=== PATIENT | male | born 1940 | race Caucasian/White ===

== ENCOUNTER → 2024-03-02 08:15 | Outpatient (REF) | payer MEDICARE, OTHER, SELFPAY | LOC: PAVMRI 08:15 | PROVIDERS: ATTENDING PHYSICIAN Psychiatry & Neurology Neurology; FAMILY PHYSICIAN Family Medicine | DX: R53.1 Weakness (principal) | CPT/HCPCS: 70553; A9575 ==

== ENCOUNTER → 2024-03-22 11:07 | Outpatient (REF) | payer MEDICARE, OTHER, SELFPAY ==
[2024-03-22 13:59] LABS: Glycohemoglobin (HgbA1c) 6.3 % (4.0-5.6)
== END ==
LOC: OLABWIL 11:07
PROVIDERS: ATTENDING PHYSICIAN Student in an Organized Health Care Education/Training Program
DX: R73.03 Prediabetes (principal)
CPT/HCPCS: 36415; 83036

== ENCOUNTER → 2024-09-06 11:07 | Outpatient (REF) | payer MEDICARE, OTHER, SELFPAY ==
[2024-09-06 15:45] LABS: % Basophils 0.8 % (0-2); % Eosinophils 3.4 % (0-6); % Immature Granulocytes 0.3 % (0-0.5); % Lymphocytes 38.4 % (20.5-51.1); % Monocytes 9.3 % (1.7-9.3); % Neutrophils 47.8 % (42.2-75.2); Absolute Basophils 0.1 10^3/uL (0-0.2); Absolute Eosinophils 0.3 10^3/uL (0-0.7); Absolute Lymphocytes 2.8 10^3/uL (1.2-3.4); Absolute Monocytes 0.7 10^3/uL (0.1-0.6); Absolute Neutrophils 3.5 10^3/uL (1.4-6.5); Hematocrit 40.9 % (39.0-52.0); Hemoglobin 13.5 g/dL (13.0-18.0); Mean Corpuscular Hgb 33.1 pg (27.0-31.0); Mean Corpuscular Volume 100.2 fL (80.0-94.0); Mean Platelet Volume 10.9 fL (7.4-10.4); Nucleated Red Blood Cells % 0.8 % (-); Platelet Count 225 10^3/uL (130-400); Red Blood Cell Count 4.08 10^6/uL (4.70-6.10); Red Cell Dist. Width 12.1 % (11.5-14.5); White Blood Cell Count 7.3 10^3/uL (4.8-10.8)
[2024-09-06 15:51] LABS: ALT (SGPT) 22 U/L (0-50); AST (SGOT) 28 U/L (17-59); Alkaline Phosphatase 68 U/L (38-126); Blood Urea Nitrogen 14 mg/dl (9-20); Calcium 8.8 mg/dl (8.4-10.2); Carbon Dioxide 27 mmol/L (22-30); Chloride 99 mmol/L (98-107); Glucose 105 mg/dl (70-99); HDL Cholesterol 38 mg/dl; LDL Cholesterol, Calculated 54 mg/dl; Potassium 4.4 mmol/L (3.5-5.1); Sodium 133 mmol/L (135-145); Total Bilirubin 0.5 mg/dl (0.2-1.3); Total Cholesterol 117 mg/dl (50-199); Total Protein 6.2 g/dl (6.3-8.2); Triglyceride 129 mg/dl (10-149); Urine Albumin Negative (Neg - Trace); Urine Bilirubin Negative (Negative); Urine Character Clear (Clear); Urine Color Yellow; Urine Glucose Negative (Negative); Urine Ketone Negative (Negative); Urine Leukocyte Negative (Negative); Urine Nitrite Negative (Negative); Urine Occult Blood Negative (Negative); Urine Urobilinogen Negative (Neg - 1+); Urine pH 6.5 (5.0-9.0); Very Low Density Lipoprotein 25 mg/dl (0-30); eGFR > 60.00
[2024-09-07 08:14] LABS: Glycohemoglobin (HgbA1c) 6.4 % (4.0-5.6)
== END ==
LOC: OLABWIL 11:07
PROVIDERS: ATTENDING PHYSICIAN Family Medicine
DX: I25.10 Atherosclerotic heart disease of native coronary artery without angina pectoris (principal); E78.5 Hyperlipidemia, unspecified; R73.03 Prediabetes; Z00.00 Encounter for general adult medical examination without abnormal findings
CPT/HCPCS: 36415; 80053; 80061; 81003; 83036; 84443; 85025

== ENCOUNTER → 2025-01-12 11:56 | Outpatient (REF) | payer MEDICARE, OTHER, SELFPAY ==
[2025-01-12 13:05] LABS: % Basophils 0.7 % (0-2); % Eosinophils 2.3 % (0-6); % Immature Granulocytes 0.2 % (0-0.5); % Lymphocytes 43.7 % (20.5-51.1); % Monocytes 9.2 % (1.7-9.3); % Neutrophils 43.9 % (42.2-75.2); Absolute Eosinophils 0.1 10^3/uL (0-0.7); Absolute Lymphocytes 2.6 10^3/uL (1.2-3.4); Absolute Monocytes 0.6 10^3/uL (0.1-0.6); Absolute Neutrophils 2.6 10^3/uL (1.4-6.5); Hematocrit 40.6 % (39.0-52.0); Hemoglobin 13.7 g/dL (13.0-18.0); Mean Corp Hgb Conc. 33.7 g/dL (33.0-37.0); Mean Corpuscular Hgb 32.2 pg (27.0-31.0); Mean Corpuscular Volume 95.3 fL (80.0-94.0); Mean Platelet Volume 10.5 fL (7.4-10.4); Nucleated Red Blood Cells % 0 % (-); Platelet Count 203 10^3/uL (130-400); Red Blood Cell Count 4.26 10^6/uL (4.70-6.10); Red Cell Dist. Width 12.5 % (11.5-14.5)
[2025-01-12 13:17] LABS: ALT (SGPT) < 10 U/L (0-50); AST (SGOT) 23 U/L (17-59); Alkaline Phosphatase 49 U/L (38-126); Blood Urea Nitrogen 14 mg/dl (9-20); Calcium 8.9 mg/dl (8.4-10.2); Carbon Dioxide 28 mmol/L (22-30); Chloride 101 mmol/L (98-107); Glucose 123 mg/dl (70-99); HDL Cholesterol 41 mg/dl; LDL Cholesterol, Calculated 63 mg/dl; Potassium 4.6 mmol/L (3.5-5.1); Sodium 137 mmol/L (135-145); Total Bilirubin 0.7 mg/dl (0.2-1.3); Total Cholesterol 121 mg/dl (50-199); Total Protein 6.2 g/dl (6.3-8.2); Triglyceride 87 mg/dl (10-149); Very Low Density Lipoprotein 17 mg/dl (0-30); eGFR > 60.00
[2025-01-12 13:42] LABS: Glycohemoglobin (HgbA1c) 6.3 % (4.0-5.6)
== END ==
LOC: OLABWIL 11:56
PROVIDERS: ATTENDING PHYSICIAN Family Medicine
DX: R73.03 Prediabetes (principal); I10 Essential (primary) hypertension; I48.0 Paroxysmal atrial fibrillation
CPT/HCPCS: 36415; 80053; 80061; 83036; 85025

== ENCOUNTER → 2025-03-02 09:53 | Outpatient (REF) | payer MEDICARE, OTHER, SELFPAY ==
[2025-03-02 10:59] LABS: % Basophils 0.6 % (0-2); % Eosinophils 2.4 % (0-6); % Immature Granulocytes 0.3 % (0-0.5); % Lymphocytes 37.9 % (20.5-51.1); % Monocytes 8.5 % (1.7-9.3); % Neutrophils 50.3 % (42.2-75.2); Absolute Eosinophils 0.2 10^3/uL (0-0.7); Absolute Lymphocytes 2.5 10^3/uL (1.2-3.4); Absolute Monocytes 0.6 10^3/uL (0.1-0.6); Absolute Neutrophils 3.4 10^3/uL (1.4-6.5); Hematocrit 40.3 % (39.0-52.0); Hemoglobin 13.9 g/dL (13.0-18.0); Mean Corp Hgb Conc. 34.5 g/dL (33.0-37.0); Mean Corpuscular Hgb 32.6 pg (27.0-31.0); Mean Corpuscular Volume 94.4 fL (80.0-94.0); Mean Platelet Volume 10.4 fL (7.4-10.4); Nucleated Red Blood Cells % 0 % (-); Platelet Count 188 10^3/uL (130-400); Red Blood Cell Count 4.27 10^6/uL (4.70-6.10); Red Cell Dist. Width 12.4 % (11.5-14.5); White Blood Cell Count 6.7 10^3/uL (4.8-10.8)
[2025-03-02 11:39] LABS: Blood Urea Nitrogen 14 mg/dl (9-20); Calcium 9.2 mg/dl (8.4-10.2); Carbon Dioxide 25 mmol/L (22-30); Chloride 106 mmol/L (98-107); Glucose 118 mg/dl (70-99); Potassium 4.4 mmol/L (3.5-5.1); Sodium 138 mmol/L (135-145); eGFR > 60.00
== END ==
LOC: REG 09:53
PROVIDERS: ATTENDING PHYSICIAN Orthopaedic Surgery
DX: Z01.818 Encounter for other preprocedural examination (principal)
CPT/HCPCS: 36415; 80048; 85025; 93005

== ENCOUNTER 2025-03-17 07:33 | Emergency (ER) | payer MEDICARE, OTHER, SELFPAY ==
[2025-03-17 07:34] VITALS: BMI 30.3
[2025-03-17 07:35] VITALS: BP 137/81
[2025-03-17 07:37] VITALS: BP 137/81
--- NOTE | 2025-03-17 07:37 | ED.GENMED ---
History of Present Illness
General
Chief Complaint: Cardiac Symptoms
Source: patient
Time Seen by Provider: 03/17/25 07:37
History of Present Illness
History of Present Illness:
84-year-old male with past medical history of atrial fibrillation, hyperlipidemia, pjr-iaxfpkd-uuxgqrkab diabetes, Parkinson's disease presenting to the emergency department from outpatient surgical center where he was supposed to have tendon
release surgery with Dr. Foy from [facility], found to be in rapid atrial fibrillation with a heart rate around 150 bpm, EMS contacted and at time of their arrival, patient had already converted back into a normal sinus rhythm.
Patient was asymptomatic at the time, EMS states patient told them that he was having off-and-on chest discomfort a few days ago but states this is normal for him and he did not think anything about it. Follows with pressure dispatcher, Dr. Sales.
Reports good compliance with his anticoagulant medication. No other concerns presently and at this time patient states he feels as if he is in his usual state of health.
Past History
Past History
ED Past Medical History: CAD, Hypercholesterolemia and Other (Parkinsons)
ED Past Surgical History: Cardiac (cardiac stent 2014) and Orthopedic
Social History
Tobacco: Former smoker
Alcohol: None
Drug: None
Personal:
Living: with family
Family History
Family History: CAD; Negative Early CAD
Review of Systems
Review of Systems
All Other Systems: ROS reviewed and negative except as documented in HPI and ROS
Phy Exam
Physical Exam
Physical Exam:
GENERAL: Alert , in no apparent distress
EYE: conjunctiva clear
NECK: Supple
ENT: o/p clr, mmm.
CARDIAC: Regular rate and rhythm
LUNGS: Clear breath sounds bilaterally, no acute respiratory distress, no wheezes/rales/rhonchi
NEUROLOGICAL: Alert and oriented
SKIN: Warm and dry, skin intact.
MUSCULOSKELETAL: well perfused.
PSYCH: Normal and appropriate interaction.
Scores
[id number] Score for Afib Stroke Risk
Age in Years (65=0, 65-74=1, >/=75=2): > or = 75
Sex (Female=+1): Male
Congestive Heart Failure History (Yes=+1): No
Hypertension History (Yes=+1): Yes
Stroke/TIA/Thromboembolism History (Yes=+2): No
Vascular Disease History (Yes=+1): No
Diabetes Mellitus (Yes=+1): Yes
Score: 4
Anticoagulation Recommendations: Recommend anticoagulation (as validated in nonvalvular fib)
Heart Failure Risk
Heart Failure Risk Score: Not Applicable
Heart Score for Chest Pain Patients
STEMI patient?: Not applicable
Withdrawal Assessment of Alcohol
Withdrawal Assessment Completed?: Not applicable
Course
Orders/Labs/Results
Orders:
Orders
03/17/25 07:36
Electrocardiogram (*1) Urgent
Reason for Study: Atrial Fibrillation
EKG- Treatment ONCE
03/17/25 07:42
Basic Metabolic Panel Urgent
Complete Blood Count/With Diff Urgent
Magnesium Urgent
TSH Urgent
Troponin I Urgent
Abnormal Lab Results
03/17/25
07:42
RBC 4.34 L 10^6/uL
(4.70-6.10)
MCH 32.7 H pg
(27.0-31.0)
Glucose 135 H mg/dl
(70-99)
03/17/25 07:42
03/17/25 07:42
Vital Signs
Initial and Last Documented VS:
Initial Vital Signs
BP
137/81
03/17/25 07:35
Last Documented Vital Signs
Temp Pulse Resp BP Pulse Ox
97.6 F 66 17 133/84 94
03/17/25 07:55 03/17/25 08:45 03/17/25 08:45 03/17/25 08:00 03/17/25 08:30
MDM/Problems Addressed
Differential Diagnosis Includes:
Paroxysmal atrial fibrillation
Electrolyte imbalance
Medication side effect
Thyroid disorder
ACS
MDM/Problems Addressed:
84-year-old male presenting to the ER from outpatient surgical center where he was found to be in a rapid A-fib, asymptomatic at the time. EMS notes patient spontaneously converted back to normal sinus rhythm by the time they had gotten to the
patient. Patient remains in a normal sinus rhythm here in the ER and otherwise asymptomatic. Will check labs including a troponin given patient's reported chest discomfort a few days ago. Will keep patient on telemetry, as long as labs are
unremarkable and patient remains within a normal sinus rhythm anticipate discharge home and can follow-up with cardiology as an outpatient.
Chronic conditions affecting care: Arrhythmia
Acute Exacerbation and/or Progression of Chronic Illness: Arrhythmia
*Pulse Oximetry
SaO2: 98
Oxygen Mode of Delivery: Room air
Patient hypoxic: no
*EKG
Interpreted by ED Provider?: Yes
Interpretation: normal
Heart Rate: 73
Rate: normal
Rhythm: sinus and PAC's
[place]: left axis deviation
Ischemia: no ischemia
*[employer] Developer Interpretation
Rate: normal
Heart Rate: 81
Rhythm: sinus
*Critical Care Note
Total Time (30-74mins, 75-104mins- exclusive of procedures): Not Applicable
Patient Management
Discussion with other providers: Customer Contact Representative
Escalation/DeEscalation of care consider admission/obs:
Patient remains hemodynamically stable and in a rate controlled normal sinus rhythm. Prior to discharge cardiology office had reached out to me stating that they were alerted patient went into an A-fib episode, notified that patient converted on
his own. They will follow-up with the patient on March 24 at 9:20 AM: Patient was notified about this appointment time and will follow-up then. Patient and are aware of return precautions to the ER
ED Attending Note
-
Portions of this chart may have been created with voice recognition software.� Occasional wrong word or��sound alike� substitutions may have occurred due to the inherent limitations of voice recognition software.
Discharge Plan
Departure
Patient Disposition: Home (Routine Discharge)
Patient with high blood pressure during this ER visit?: Yes
Discharge Problem:
Paroxysmal atrial fibrillation
Instructions: Atrial fibrillation - Discharge instructions
Prescriptions:
No Action
aspirin [Iban Chewable Aspirin] 81 MG tablet,chewable
81 mg PO HS
dhwzkiamweu-ijngwgqpj-rjz C-Mn 1 TAB tablet
1 tab PO DAILY
docosahexaenoic acid-epa 1 CAP capsule
1 cap PO DAILY
multivitamin [TAB A NAVEEN] Tablet
1 tab PO DAILY
fexofenadine [Marla] 180 mg Tablet
180 mg PO DAILY
sildenafil 100 mg tablet
100 mg PO DAILY PRN (Reason: intercourse)
carbidopa-levodopa 25-100 mg tablet
2 tab PO TID
rosuvastatin 20 mg tablet
20 mg PO DAILY
coenzyme Q10 [Co Q-10] 200 mg Capsule
200 mg PO DAILY
Eliquis 5 mg tablet
5 mg PO BID Qty: 30 0RF
Referrals:
Alec Lozano DO [Family Provider, Family Practice]
Hardik Sales MD [Active, Cardiology]
Referral Note: Call office for appointment
Valerie Cerna CRNP [Specified Professional Personl, Cardiology] - 03/24/25 9:20 am
Referral Note: You have a follow-up appointment with Dr. Slaes's nurse practitioner at the [facility].
Interventions
Interventions:
*Risk Screen - Suicide Last Done: 03/17/25 07:39
*General Assessment Last Done: 03/17/25 07:39
*Neglect/Abuse Screening Last Done: 03/17/25 07:39
*ED- Fall Risk Assessment Last Done: 03/17/25 07:41
*ED COVID-19 Vaccine History Last Done: 03/17/25 08:09
*Nursing Disposition Last Done: 03/17/25 09:13
ED- Pulmonary Assessment Last Done: 03/17/25 07:55
ED- Cardiac Assessment Last Done: 03/17/25 07:55
Discharge Date and Time
Discharge Date/Time: 03/17/25 09:13
Print Language: ALBANIAN
[2025-03-17 07:50] LABS: Hematocrit 40.3 % (39.0-52.0); Hemoglobin 14.2 g/dL (13.0-18.0); Mean Corp Hgb Conc. 35.2 g/dL (33.0-37.0); Mean Corpuscular Volume 92.9 fL (80.0-94.0); Nucleated Red Blood Cells % 0 % (-); Platelet Count 183 10^3/uL (130-400); Red Cell Dist. Width 12.5 % (11.5-14.5)
[2025-03-17 08:00] VITALS: BP 133/84
[2025-03-17 08:05] LABS: Blood Urea Nitrogen 16 mg/dl (9-20); Calcium 8.9 mg/dl (8.4-10.2); Carbon Dioxide 26 mmol/L (22-30); Chloride 107 mmol/L (98-107); Estimated Creatinine Clearance 82 ml/min; Glucose 135 mg/dl (70-99); Magnesium 1.9 mg/dl (1.6-2.3); Potassium 4.4 mmol/L (3.5-5.1); Sodium 135 mmol/L (135-145); eGFR > 60.00
[2025-03-17 08:18] LABS: Troponin I < 0.012 ng/ml
[2025-03-17 08:36] LABS: TSH 1.16 uIU/ml (0.47-4.68)
== END 2025-03-17 09:13 | disposition home or self-care (01) ==
LOC: EMR 07:33
PROVIDERS: Physician Assistant Medical; EMERGENCY PHYSICIAN Emergency Medicine; FAMILY PHYSICIAN Family Medicine; OTHER PHYSICIAN Internal Medicine Cardiovascular Disease
DX: R07.89 Other chest pain (principal); I48.0 Paroxysmal atrial fibrillation; R03.0 Elevated blood-pressure reading, without diagnosis of hypertension; E11.9 Type 2 diabetes mellitus without complications; E78.00 Pure hypercholesterolemia, unspecified; G20.A1 Parkinson's disease without dyskinesia, without mention of fluctuations; I25.10 Atherosclerotic heart disease of native coronary artery without angina pectoris; Z79.01 Long term (current) use of anticoagulants; Z95.5 Presence of coronary angioplasty implant and graft; Z87.891 Personal history of nicotine dependence
CPT/HCPCS: 99283; 80048; 83735; 84443; 84484; 85025; 93005

== ENCOUNTER → 2025-05-19 09:10 | Outpatient (REF) | payer MEDICARE, OTHER, SELFPAY ==
[2025-05-19 11:38] LABS: Hematocrit 40.3 % (39.0-52.0); Hemoglobin 13.8 g/dL (13.0-18.0); Mean Corp Hgb Conc. 34.2 g/dL (33.0-37.0); Mean Corpuscular Volume 97.6 fL (80.0-94.0); Platelet Count 189 10^3/uL (130-400); Red Cell Dist. Width 12.4 % (11.5-14.5)
[2025-05-19 12:07] LABS: Blood Urea Nitrogen 13 mg/dl (9-20); Calcium 9.0 mg/dl (8.4-10.2); Carbon Dioxide 29 mmol/L (22-30); Chloride 101 mmol/L (98-107); Glucose 113 mg/dl (70-99); Potassium 4.8 mmol/L (3.5-5.1); Sodium 135 mmol/L (135-145); eGFR > 60.00
== END ==
LOC: SDSPAT 09:10
PROVIDERS: ATTENDING PHYSICIAN Orthopaedic Surgery; FAMILY PHYSICIAN Family Medicine
DX: Z01.818 Encounter for other preprocedural examination (principal)
CPT/HCPCS: 36415; 80048; 85027; 93005

== ENCOUNTER 2025-05-23 06:23 | Day surgery (SDC) | payer MEDICARE, OTHER, SELFPAY ==
[2025-05-19 14:09] VITALS: BMI 29.1
[2025-05-23] VITALS (12 sets, daily range): BP systolic 115–171; BP diastolic 83–107; BMI 29.1
[2025-05-23] MEDS: TYLENOL 1000 MG PO (11:15)
[2025-05-23] MEDS: CELEBREX 200 MG PO (11:15)
[2025-05-23] MEDS: NORMOSOL-R/PLASMALYTE-A 1000 IV (11:42)
[2025-05-23] MEDS: LOPRESSOR 3 MG IV (13:36)
== END 2025-05-23 15:10 | disposition home or self-care (01) ==
LOC: SDS 06:23
PROVIDERS: ATTENDING PHYSICIAN Orthopaedic Surgery; FAMILY PHYSICIAN Family Medicine
DX: M66.242 Spontaneous rupture of extensor tendons, left hand (principal)
CPT/HCPCS: 26437

== ENCOUNTER → 2025-07-25 09:55 | Outpatient (REF) | payer MEDICARE, OTHER, SELFPAY ==
[2025-07-25 10:30] LABS: Hematocrit 42.1 % (39.0-52.0); Hemoglobin 13.9 g/dL (13.0-18.0); Mean Corp Hgb Conc. 33.0 g/dL (33.0-37.0); Mean Corpuscular Volume 101.0 fL (80.0-94.0); Nucleated Red Blood Cells % 0 % (-); Platelet Count 176 10^3/uL (130-400); Red Cell Dist. Width 12.4 % (11.5-14.5)
[2025-07-25 10:59] LABS: ALT (SGPT) 10 U/L (0-50); AST (SGOT) 24 U/L (17-59); Albumin 4.2 g/dl (3.5-5.0); Alkaline Phosphatase 53 U/L (38-126); Blood Urea Nitrogen 12 mg/dl (9-20); Calcium 8.6 mg/dl (8.4-10.2); Carbon Dioxide 27 mmol/L (22-30); Chloride 102 mmol/L (98-107); Glucose 117 mg/dl (70-99); HDL Cholesterol 42 mg/dl; LDL Cholesterol, Calculated 69 mg/dl; Potassium 4.6 mmol/L (3.5-5.1); Sodium 136 mmol/L (135-145); Total Protein 6.4 g/dl (6.3-8.2); Very Low Density Lipoprotein 23 mg/dl (0-30); eGFR > 60.00
[2025-07-25 11:16] LABS: TSH 1.89 uIU/ml (0.47-4.68)
[2025-07-25 12:30] LABS: Glycohemoglobin (HgbA1c) 6.5 % (4.0-5.9)
== END ==
LOC: OLABWIL 09:55
PROVIDERS: ATTENDING PHYSICIAN Family Medicine
DX: I25.10 Atherosclerotic heart disease of native coronary artery without angina pectoris (principal); R73.03 Prediabetes; I10 Essential (primary) hypertension; E78.5 Hyperlipidemia, unspecified
CPT/HCPCS: 36415; 80053; 80061; 83036; 84443; 85025